=== PATIENT | female | born 1960 | race Caucasian/White ===

== ENCOUNTER 2016-06-23 19:17 | Inpatient (IN) | payer OTHER ==
[~2016-06-23] VITALS: Ht 162.6 cm; Wt 119.0 kg
[~2016-06-23 19:17] MED LIST: ADDERALL; ADDERALL30 MG PO; ALBUTEROL S5 MG/1 ML AEROSOL; ALBUTEROL SULF8.5 GM IH; ALDACTONE25 MG PO; ALPRAZOLAM0.5 MG PO; ALPRAZOLAM1 MG PO; AMARYL1 MG PO; AMBIEN; AMBIEN10 M1 PO; AMBIEN10 MG PO; AMOXIL500 MG PO; ANTIVERT25 MG PO; ASPIR-LOW81 MG PO; ASPIRIN325 MG PO; Ambien PO; BACTRIM,SEPT1 TABLET PO; CATAPRES0.1 MG PO; CEFDINIR300 MG PO; CHLORASEPTIC S180 ML MM; CLINDAMYCIN HC300 MG PO; COLACE10 MG/ML PO; CYCLOBENZAPRINE10 MG PO; CYMBALTA20 MG PO; CYMBALTA30 MG PO; CYMBALTA60 MG PO; Cipro 0.2% Otic Solu LEFT EAR; Colace PO; Cymbalta PO; DIAZEPAM2 MG; DOES NOT KNOW MEDS; DOXYCYCLINE HY100 MG PO; DULOXETINE HCL60 MG PO; DuoNeb IH; FLEXERIL10 MG PO; FLORASTOR250 MG PO; FUROSEMIDE40 MG PO; GABAPENTIN400 MG PO; GABAPENTIN800 MG PO; HALDOL5 MG PO; HYDROCHLOROTH12.5 M3 PO; HYDROCHLOROTHIA25 MG PO; HYDROCHLOROTHIA50 MG PO; HYDROCODON-ACE1 EAC7 PO; Haldol PO; IBUPROFEN800 MG PO; KEFLEX500 MG PO; KLONOPIN0.5 M1 PO; KLONOPIN1 MG PO; LEVAQUIN500 MG PO; LIDODERM 5% P1 PATCH TD; LOPRESSOR25 MG PO; LYRICA150 MG PO; LYRICA75 MG PO; Levaquin PO; MOTRIN600 MG PO; MOTRIN800 MG PO; Miralax, Glycolax PO; Motrin PO; NEURONTIN100 MG PO; NEURONTIN400 M1 PO; NEURONTIN400 MG PO; NEURONTIN600 MG PO; NEURONTIN800 MG PO; NICOTINE PATCH1 EAC1 TD; NICOTINE PATCH1 EAC2 TD; NOHOMEMEDS; NORCO 10/3251 TABLET PO; NORCO 5/3251 TABLET PO; NYSTATIN15 GM TP; Neurontin PO; OXYCODONE-APAP1 EACH PO; PANTOPRAZOLE SO40 MG PO; PERCOCET 5/31 TABLET PO; PREDNISONE20 M1 PO; PREDNISONE20 MG PO; PRILOSEC40 MG PO; PROAIR HFA8.5 GM IH; QUETIAPINE FUM200 MG PO; RISPERDAL1 MG PO; SEROQUEL200 MG PO; SEROQUEL300 MG PO; SEROQUEL400 MG PO; SERTRALINE HCL50 MG PO; SPIRONOLACTONE25 MG PO; SYNTHROID50 MCG PO; Senokot,Sennagen PO; TOPAMAX50 MG PO; TOPIRAMATE50 MG PO; TYLENOL REGULA325 MG PO; TYLENOL WITH C1 EACH PO; ULTRAM50 MG PO; UNITHROID50 MCG PO; VALIUM10 MG PO; VENTOLIN HFA18 GM IH; VICODIN HP 10-1 EACH PO; XANAX; XANAX0.25 MG PO; XANAX0.5 MG PO; XANAX1 MG PO; Xanax PO; ZITHROMAX Z-PA250 MG PO; ZOCOR40 MG PO; ZOLPIDEM TARTRAT5 MG PO; [UNRECOGNIZED DRUG - OTHER]; predniSONE PO
[2016-06-23 20:20] LABS: EOSINOPHIL (%) 3.5 % (0-5); EOSINOPHIL COUNT 0.2 K/uL (0-0.3); HEMATOCRIT 37.9 % (36.0-46.0); LYMPHOCYTE COUNT 1.7 K/uL (1.0-2.8); MCH 29.8 PG (29.0-34.0); MCHC 33.8 G/DL (30.0-36.0); MCV 88.3 FL (83-99); MEAN PLAT.VOLUME 9.3 uM^3 (9.5-12.4); MONOCYTE (%) 11.7 % (3-12); MONOCYTE COUNT 0.6 K/uL (0-0.8); NEUTROPHIL (%) 49.8 % (45-76); NEUTROPHIL COUNT 2.4 K/uL (1.8-6.4); PLATELET COUNT 199 K/uL (156-360); RBC DIS.WIDTH-CV 14.2 % (11.8-14.6); RBC DIS.WIDTH-SD 44.9 % (39-53); RED BLOOD COUNT 4.29 M/uL (3.80-5.20); WHITE BLOOD COUNT 4.9 K/uL (4.1-10.2)
[2016-06-23 20:31] LABS: CHLORIDE 102 mEq/L (99-109); POTASSIUM 3.7 mEq/L (3.7-5.4); SODIUM 139 mEq/L (136-147)
[2016-06-23 20:33] LABS: GLUCOSE 234 mg/dL (70-99)
[2016-06-23 20:34] LABS: ANION GAP 10 MEQ/L (2-14)
[2016-06-23 20:35] LABS: TOTAL BILIRUBIN 0.4 mg/dL (0.0-1.0)
[2016-06-23 20:36] LABS: ALKALINE PHOSPHATASE 133 IU/L (3-129)
[2016-06-23 20:37] LABS: GFR ESTIMATE (CALCULATED) > 59 mL/min/
[2016-06-23 20:38] LABS: UREA NITROGEN (BUN) 7 mg/dL (9-23)
[2016-06-23] MEDS ORDERED: ALDACTONE25 MG PO (23:07)
[2016-06-23] MEDS ORDERED: LYRICA300 MG PO (23:08)
[2016-06-23] MEDS ORDERED: NEURONTIN300 MG PO (23:08)
[2016-06-23] MEDS ORDERED: ATARAX,VISTARIL25 MG PO (23:12)
[2016-06-24] VITALS (8 sets, daily range): BP systolic 88–145; BP diastolic 46–80
[2016-06-24 10:30] LABS: BICARBONATE 30.4 mEq/L (22-26); CARBOXY HGB 3.7 % (0-5); COMMENTS - BLOOD GASES NAC+; DEVICE NC; METHEMOGLOBIN 1.1 % (0-1.5); O2 FLOW 3 L/MIN; PCO2 59 mm Hg (35-45); PO2 65 mm Hg (80-100); SITE RR; pH 7.32 (7.35-7.45)
[2016-06-24 10:31] LABS: TOTAL RESP RATE 16 resp/min
[2016-06-24 18:16] LABS: ADD MIUA? YES; BILIRUBIN NEGATIVE; BLOOD NEGATIVE; COLOR COLORLESS ((YELLOW)); GLUCOSE (STRIP) NEGATIVE; KETONES NEGATIVE; LEUKOCYTES SMALL; NITRITE NEGATIVE; PROTEIN (STRIP) NEGATIVE; SPECIFIC GRAVITY 1.002 (1.000-1.030); UROBILINOGEN 0.2 MG/DL (0.2-1.0)
[2016-06-24 20:08] LABS: EPITHELIAL CELLS RARE; RED BLOOD CELLS NONE SEEN /HPF (0-5); WHITE BLOOD CELLS 0-5 /HPF (0-5)
[2016-06-24 20:09] LABS: BACTERIA 1+; CASTS NONE SEEN /LPF; CRYSTALS NONE SEEN; MUCUS NONE SEEN
[2016-06-25 06:02] LABS: EOSINOPHIL (%) 3.2 % (0-5); EOSINOPHIL COUNT 0.1 K/uL (0-0.3); LYMPHOCYTE COUNT 1.8 K/uL (1.0-2.8); MCHC 32.1 G/DL (30.0-36.0); MCV 90.5 FL (83-99); MEAN PLAT.VOLUME 9.9 uM^3 (9.5-12.4); MONOCYTE (%) 12.3 % (3-12); MONOCYTE COUNT 0.5 K/uL (0-0.8); NEUTROPHIL (%) 35.3 % (45-76); NEUTROPHIL COUNT 1.3 K/uL (1.8-6.4); PLATELET COUNT 190 K/uL (156-360); RBC DIS.WIDTH-CV 14.2 % (11.8-14.6); RED BLOOD COUNT 4.31 M/uL (3.80-5.20); WHITE BLOOD COUNT 3.7 K/uL (4.1-10.2)
[2016-06-25 06:25] LABS: ALKALINE PHOSPHATASE 120 IU/L (3-129); ANION GAP 6 MEQ/L (2-14); CHLORIDE 98 MEQ/L (99-109); GFR ESTIMATE (CALCULATED) 50 mL/min/; GLUCOSE 170 mg/dL (70-99); POTASSIUM 3.9 MEQ/L (3.7-5.4); SAMPLE HEMOLYSIS CHECK 1; SAMPLE ICTERIC CHECK 0; SAMPLE LIPEMIA CHECK 0; SODIUM 138 MEQ/L (136-147); TOTAL BILIRUBIN 0.5 MG/DL (0.0-1.0); UREA NITROGEN (BUN) 11 mg/dL (9-23)
[2016-06-25 07:55] VITALS: BP 90/75
[2016-06-25 15:20] VITALS: BP 124/87
[2016-06-25 23:41] VITALS: BP 129/73
[2016-06-26 09:29] VITALS: BP 121/63
[2016-06-26] MEDS ORDERED: FLORASTOR250 MG PO (11:47)
[2016-06-26] MEDS ORDERED: CLEOCIN300 MG PO (11:47)
[2016-06-26] MEDS ORDERED: ZEASORB-AF70 G1 TP (11:48)
[2016-06-26] MEDS ORDERED: QUETIAPINE FUM400 MG PO (13:19)
[2016-06-26] MEDS ORDERED: ZOLPIDEM TARTRAT5 MG PO (13:19)
[2016-06-26] MEDS ORDERED: DULOXETINE HCL60 MG PO (13:19)
[2016-06-26] MEDS ORDERED: GABAPENTIN300 MG PO (13:19)
[2016-06-26] MEDS ORDERED: ALPRAZOLAM0.5 MG PO (13:19)
[2016-06-26] MEDS ORDERED: HYDROXYZINE PAM25 MG PO (13:19)
== END 2016-06-26 14:33 | disposition home or self-care (01) | DRG 603 ==
LOC: EME 19:17 → 5EAST 23:04 → EDOF 23:04 → 5EAST 23:57
PROVIDERS: Emergency Medicine; Internal Medicine
DX: L03.116 Cellulitis of left lower limb (principal); Z68.42 Body mass index [BMI] 45.0-49.9, adult; L03.115 Cellulitis of right lower limb; M79.7 Fibromyalgia; F17.200 Nicotine dependence, unspecified, uncomplicated; M79.605 Pain in left leg; E11.9 Type 2 diabetes mellitus without complications; M79.604 Pain in right leg; E66.01 Morbid (severe) obesity due to excess calories; I10 Essential (primary) hypertension; G89.29 Other chronic pain; E78.5 Hyperlipidemia, unspecified; E03.9 Hypothyroidism, unspecified; F32.9 Major depressive disorder, single episode, unspecified; F41.9 Anxiety disorder, unspecified; Z88.8 Allergy status to other drugs, medicaments and biological substances; Z88.1 Allergy status to other antibiotic agents; Z86.73 Personal history of transient ischemic attack (TIA), and cerebral infarction without residual deficits
CPT/HCPCS: 36600; 71010; 80053; 81003; 82803; 83605; 85025; 87040; 93970; 94799; 99281; 99285; J1170; J1650; J3010; J7040; Q0177

== ENCOUNTER 2016-07-15 12:28 | Emergency (ER) | payer OTHER ==
[~2016-07-15] VITALS: Ht 162.6 cm; Wt 114.0 kg
[~2016-07-15 12:28] MED LIST changes: +ATARAX,VISTARIL25 MG PO; +CLEOCIN300 MG PO; +GABAPENTIN300 MG PO; +HYDROXYZINE PAM25 MG PO; +LYRICA300 MG PO; +NEURONTIN300 MG PO; +QUETIAPINE FUM400 MG PO; +ZEASORB-AF70 G1 TP
[2016-07-15 13:13] LABS: EOSINOPHIL (%) 1.1 % (0-5); EOSINOPHIL COUNT 0.1 K/uL (0-0.3); HEMATOCRIT 41.9 % (36.0-46.0); IMMATURE GRANULOCYTE (%) 0.2 % (0.0-0.7); IMMATURE GRANULOCYTE COUNT 0.2 K/uL; LYMPHOCYTE COUNT 1.9 K/uL (1.0-2.8); MCHC 33.9 G/DL (30.0-36.0); MCV 85.7 FL (83-99); MEAN PLAT.VOLUME 9.6 uM^3 (9.5-12.4); MONOCYTE (%) 8.5 % (3-12); MONOCYTE COUNT 0.7 K/uL (0-0.8); NEUTROPHIL (%) 67.5 % (45-76); NEUTROPHIL COUNT 5.5 K/uL (1.8-6.4); PLATELET COUNT 210 K/uL (156-360); RBC DIS.WIDTH-CV 13.7 % (11.8-14.6); RBC DIS.WIDTH-SD 42.5 % (39-53); RED BLOOD COUNT 4.89 M/uL (3.80-5.20); WHITE BLOOD COUNT 8.2 K/uL (4.1-10.2)
[2016-07-15 13:21] LABS: CHLORIDE 104 mEq/L (99-109); POTASSIUM 3.4 mEq/L (3.7-5.4); SODIUM 141 mEq/L (136-147)
[2016-07-15 13:22] LABS: GLUCOSE 287 mg/dL (70-99)
[2016-07-15 13:24] LABS: ANION GAP 12 MEQ/L (2-14)
[2016-07-15 13:25] LABS: SERUM ETHYL ALCOHOL < 10 mg/dL
[2016-07-15 13:26] LABS: GFR ESTIMATE (CALCULATED) 50 mL/min/
[2016-07-15 13:27] LABS: UREA NITROGEN (BUN) 11 mg/dL (9-23)
[2016-07-15 13:55] VITALS: BP 142/78
== END 2016-07-15 13:57 | disposition home or self-care (01) ==
LOC: EME 12:28
PROVIDERS: Emergency Medicine
DX: F43.0 Acute stress reaction (principal); F41.9 Anxiety disorder, unspecified
CPT/HCPCS: 80048; 81003; 85025; 90837; 99281; 99284; G0480

== ENCOUNTER 2016-08-12 13:04 | Emergency (ER) | payer OTHER ==
[~2016-08-12] VITALS: Ht 162.6 cm; Wt 114.5 kg
[2016-08-12] MEDS ORDERED: ALPRAZOLAM1 MG PO (13:30)
[2016-08-12 13:50] LABS: EOSINOPHIL (%) 0.6 % (0-5); EOSINOPHIL COUNT 0.1 K/uL (0-0.3); HEMATOCRIT 46.3 % (36.0-46.0); IMMATURE GRANULOCYTE (%) 0.3 % (0.0-0.7); INSTRUMENT ABS NEUTROPHIL CT 5.1 K/uL; LYMPHOCYTE COUNT 1.8 K/uL (1.0-2.8); MCH 28.6 PG (29.0-34.0); MCHC 33.5 G/DL (30.0-36.0); MCV 85.4 FL (83-99); MEAN PLAT.VOLUME 9.9 uM^3 (9.5-12.4); MONOCYTE (%) 9.2 % (3-12); MONOCYTE COUNT 0.7 K/uL (0-0.8); NEUTROPHIL (%) 66.6 % (45-76); NEUTROPHIL COUNT 5.1 K/uL (1.8-6.4); PLATELET COUNT 172 K/uL (156-360); RBC DIS.WIDTH-SD 40.3 % (39-53); RED BLOOD COUNT 5.42 M/uL (3.80-5.20); WHITE BLOOD COUNT 7.7 K/uL (4.1-10.2)
[2016-08-12 14:01] LABS: CHLORIDE 92 mEq/L (99-109); POTASSIUM 3.9 mEq/L (3.7-5.4); SODIUM 133 mEq/L (136-147)
[2016-08-12 14:02] LABS: GLUCOSE 385 mg/dL (70-99)
[2016-08-12 14:04] LABS: ANION GAP 13 MEQ/L (2-14)
[2016-08-12 14:06] LABS: GFR ESTIMATE (CALCULATED) 50 mL/min/
[2016-08-12 14:07] LABS: UREA NITROGEN (BUN) 7 mg/dL (9-23)
[2016-08-12 14:16] LABS: TROP-I INTERPRETATION NEGATIVE; TROPONIN-I < 0.01 ng/mL (0.0-0.30)
[2016-08-12] MEDS ORDERED: PREDNISONE50 MG PO (15:33)
[2016-08-12] MEDS ORDERED: XANAX0.5 MG PO (15:33)
[2016-08-12 15:58] VITALS: BP 113/95
== END 2016-08-12 16:21 | disposition home or self-care (01) ==
LOC: EME 13:04
PROVIDERS: Emergency Medicine
DX: J44.9 Chronic obstructive pulmonary disease, unspecified (principal); F41.9 Anxiety disorder, unspecified; J45.909 Unspecified asthma, uncomplicated; G89.29 Other chronic pain; M79.7 Fibromyalgia; I10 Essential (primary) hypertension; K21.9 Gastro-esophageal reflux disease without esophagitis; Z86.73 Personal history of transient ischemic attack (TIA), and cerebral infarction without residual deficits; Z87.891 Personal history of nicotine dependence
CPT/HCPCS: 71010; 80048; 83880; 84484; 85025; 93005; 94640; 99281; 99285; J7644

== ENCOUNTER 2016-09-07 08:09 | Emergency (ER) | payer OTHER ==
[~2016-09-07] VITALS: Ht 162.6 cm; Wt 113.7 kg
[~2016-09-07 08:09] MED LIST changes: +PREDNISONE50 MG PO
[2016-09-07 10:49] VITALS: BP 99/72
== END 2016-09-07 10:52 | disposition left against medical advice (07) ==
LOC: EME 08:09
DX: R51 Headache (principal); J45.909 Unspecified asthma, uncomplicated; J44.9 Chronic obstructive pulmonary disease, unspecified; G89.29 Other chronic pain; M79.7 Fibromyalgia; I10 Essential (primary) hypertension; K21.9 Gastro-esophageal reflux disease without esophagitis; Z86.73 Personal history of transient ischemic attack (TIA), and cerebral infarction without residual deficits; Z72.0 Tobacco use
CPT/HCPCS: 70450; 80048; 85025; 99281; 99285; J1885; J2765; J7030

== ENCOUNTER 2016-11-23 14:55 | Emergency (ER) | payer OTHER ==
[~2016-11-23] VITALS: Ht 160 cm; Wt 114.6 kg
[2016-11-23 18:02] VITALS: BP 122/77
== END 2016-11-23 18:04 | disposition home or self-care (01) ==
LOC: EME 14:55
PROC: 2W3TX1Z Immobilization of Left Foot using Splint (ICD-10-PCS; principal; 2016-11-23)
DX: S09.90XA Unspecified injury of head, initial encounter (principal); S80.01XA Contusion of right knee, initial encounter; S93.402A Sprain of unspecified ligament of left ankle, initial encounter; W18.30XA Fall on same level, unspecified, initial encounter; J44.9 Chronic obstructive pulmonary disease, unspecified; I10 Essential (primary) hypertension; M79.7 Fibromyalgia; K21.9 Gastro-esophageal reflux disease without esophagitis; Z86.73 Personal history of transient ischemic attack (TIA), and cerebral infarction without residual deficits; Z79.891 Long term (current) use of opiate analgesic; F32.9 Major depressive disorder, single episode, unspecified; F17.200 Nicotine dependence, unspecified, uncomplicated; Z88.0 Allergy status to penicillin; Z88.8 Allergy status to other drugs, medicaments and biological substances
CPT/HCPCS: 70450; 72125; 73564; 73610; 99281; 99284; J3010

== ENCOUNTER 2016-12-22 12:33 | Inpatient (IN) | payer OTHER ==
[~2016-12-22] VITALS: Ht 177.8 cm; Wt 106.0 kg
[~2016-12-22 12:33] MED LIST changes: +OMEPRAZOLE40 M1 PO; -PRILOSEC40 MG PO
[2016-12-22 13:36] LABS: EOSINOPHIL (%) 0 % (0-5); HEMATOCRIT 45.8 % (36.0-46.0); IMMATURE GRANULOCYTE (%) 0.5 % (0.0-0.7); IMMATURE GRANULOCYTE COUNT 0.1 K/uL; INSTRUMENT ABS NEUTROPHIL CT 10.1 K/uL; LYMPHOCYTE COUNT 1.2 K/uL (1.0-2.8); MCH 28.9 PG (29.0-34.0); MCHC 33.6 G/DL (30.0-36.0); MCV 85.9 FL (83-99); MEAN PLAT.VOLUME 9.9 uM^3 (9.5-12.4); MONOCYTE (%) 7.6 % (3-12); MONOCYTE COUNT 0.9 K/uL (0-0.8); NEUTROPHIL (%) 82.1 % (45-76); NEUTROPHIL COUNT 10.1 K/uL (1.8-6.4); PLATELET COUNT 189 K/uL (156-360); RBC DIS.WIDTH-CV 13.9 % (11.8-14.6); RBC DIS.WIDTH-SD 43.2 % (39-53); RED BLOOD COUNT 5.33 M/uL (3.80-5.20); WHITE BLOOD COUNT 12.2 K/uL (4.1-10.2)
[2016-12-22 13:50] LABS: CHLORIDE 96 mEq/L (99-109); POTASSIUM 3.4 mEq/L (3.7-5.4); SODIUM 142 mEq/L (136-147)
[2016-12-22 13:52] LABS: GLUCOSE 192 mg/dL (70-99)
[2016-12-22 13:53] LABS: ANION GAP 17 MEQ/L (2-14)
[2016-12-22 13:54] LABS: TOTAL BILIRUBIN 0.9 mg/dL (0.0-1.0)
[2016-12-22 13:55] LABS: SERUM ETHYL ALCOHOL < 10 mg/dL
[2016-12-22 13:56] LABS: ALKALINE PHOSPHATASE 126 IU/L (3-129); GFR ESTIMATE (CALCULATED) 50 mL/min/
[2016-12-22 13:57] LABS: UREA NITROGEN (BUN) 15 mg/dL (9-23)
[2016-12-22 14:05] LABS: QUANTITATIVE HCG < 4.0 MIU/ML
[2016-12-22] MEDS ORDERED: FOLIC ACID1 MG PO (18:52)
[2016-12-22] MEDS ORDERED: ATARAX,VISTARIL25 MG PO (18:52)
[2016-12-22] MEDS ORDERED: CYMBALTA60 MG PO (18:54)
[2016-12-22] MEDS ORDERED: SEROQUEL400 MG PO (18:55)
[2016-12-22] MEDS ORDERED: GLIMEPIRIDE4 MG PO (18:56)
[2016-12-22 19:33] VITALS: BP 164/90
[2016-12-22 22:48] LABS: METH RESISTANT S AUREUS PCR NEGATIVE (NEGATIVE)
[2016-12-22 23:13] LABS: PROBE CHECK PASS; SPECIMEN PROCESSING CONTROL PASS
[2016-12-23 00:45] VITALS: BP 160/68
[2016-12-23 04:15] VITALS: BP 165/83
[2016-12-23 05:07] LABS: AMPHETAMINES QUANT VALUE 0 NG/ML; BARBITUATES QUANT VALUE 0 NG/ML; BENZODIAZEPINES, URINE SCREEN POSITIVE (200 ng/mL); MARIJUANA QUANT VALUE 0 NG/ML; PHENCYCLIDINE QUANT VALUE 0 NG/ML
[2016-12-23 07:41] LABS: HDL CHOLESTEROL 48 MG/DL (Desirable>=50); LDL CHOLESTEROL 103 mg/dL (Desirable<100); NON-HDL CHOLESTEROL 138 mg/dL (Desirable<160); TOTAL CHOLESTEROL 186 mg/dL (Desirable<200); TRIGLYCERIDES 177 MG/DL (Normal: <150)
[2016-12-23 07:55] LABS: Estimated Average Glucose 203 mg/dL (70-123); HEMOGLOBIN A1c (GLYCOHEMOGLOB) 8.7 % HGB (Below 5.7)
[2016-12-23 08:00] VITALS: BP 160/79
[2016-12-23 08:46] LABS: HEMATOCRIT 45.1 % (36.0-46.0); MCH 29.4 PG (29.0-34.0); MEAN PLAT.VOLUME 10.1 uM^3 (9.5-12.4); PLATELET COUNT 224 K/uL (156-360); RBC DIS.WIDTH-CV 13.9 % (11.8-14.6); RBC DIS.WIDTH-SD 42.5 % (39-53); RED BLOOD COUNT 5.37 M/uL (3.80-5.20); WHITE BLOOD COUNT 12.5 K/uL (4.1-10.2)
[2016-12-23 09:15] LABS: ANION GAP 15 MEQ/L (2-14); CHLORIDE 99 MEQ/L (99-109); GFR ESTIMATE (CALCULATED) > 59 mL/min/; GLUCOSE 145 mg/dL (70-99); POTASSIUM 3.1 MEQ/L (3.7-5.4); SAMPLE HEMOLYSIS CHECK 0; SAMPLE ICTERIC CHECK 0; SAMPLE LIPEMIA CHECK 0; SODIUM 141 MEQ/L (136-147); UREA NITROGEN (BUN) 15 mg/dL (9-23)
[2016-12-23 11:30] VITALS: BP 151/77
[2016-12-23 14:48] VITALS: BP 159/88
[2016-12-23 18:04] LABS: POINT-OF-CARE METER ID UU13113717
[2016-12-23 21:27] LABS: POINT-OF-CARE METER ID UU14174225
[2016-12-24] VITALS: BP 152/85
[2016-12-24 08:30] VITALS: BP 111/69
[2016-12-24 12:42] LABS: POINT-OF-CARE METER ID UU13113717
[2016-12-24 13:21] VITALS: BP 127/78
[2016-12-24 15:21] VITALS: BP 127/85
[2016-12-24] MEDS ORDERED: LYRICA100 MG PO (20:04)
[2016-12-24] MEDS ORDERED: AMBIEN10 MG PO (20:04)
== END 2016-12-24 18:44 | DRG 948 ==
LOC: EME 12:33 → EDOF 17:32 → ENRESERV 17:34 → 5WEST 19:15 → 5SOUTH 12-23 12:32 → 5WEST 12-23 12:32 → CANRESERV 12-23 12:38 → ENRESERV 12-23 12:38 → 5SOUTH 12-23 14:16
PROVIDERS: Emergency Medicine; Nurse Practitioner Adult Health; Physician Assistant Medical; Student in an Organized Health Care Education/Training Program
DX: R41.82 Altered mental status, unspecified (principal); R47.01 Aphasia; F25.9 Schizoaffective disorder, unspecified; F31.9 Bipolar disorder, unspecified; F41.9 Anxiety disorder, unspecified; F17.200 Nicotine dependence, unspecified, uncomplicated; J44.9 Chronic obstructive pulmonary disease, unspecified; I10 Essential (primary) hypertension; K21.9 Gastro-esophageal reflux disease without esophagitis; G43.909 Migraine, unspecified, not intractable, without status migrainosus; M79.7 Fibromyalgia; E66.9 Obesity, unspecified; G89.29 Other chronic pain; M54.9 Dorsalgia, unspecified; Z86.73 Personal history of transient ischemic attack (TIA), and cerebral infarction without residual deficits; Z91.14 Patient's other noncompliance with medication regimen; Z68.33 Body mass index [BMI] 33.0-33.9, adult; Z79.891 Long term (current) use of opiate analgesic; Z88.0 Allergy status to penicillin
CPT/HCPCS: 70450; 70551; 80048; 80053; 80061; 80306 90; 81003; 82948; 83036; 84702; 85025; 85027; 87081; 87641; 90839; 90899; 93880; 99281; 99285; G0378; G0480; J1815; J2060; Q0177

== ENCOUNTER 2016-12-24 18:04 | Inpatient (IN) | payer OTHER ==
[~2016-12-24] VITALS: Ht 177.8 cm; Wt 106.0 kg
[~2016-12-24 18:04] MED LIST changes: +FOLIC ACID1 MG PO; +GLIMEPIRIDE4 MG PO
[2016-12-24 18:58] VITALS: BP 117/73
[2016-12-24 19:03] VITALS: BP 117/73
[2016-12-24] MEDS ORDERED: LYRICA100 MG PO (20:04)
[2016-12-24] MEDS ORDERED: AMBIEN10 MG PO (20:04)
[2016-12-25 07:35] VITALS: BP 109/59
[2016-12-25 15:14] VITALS: BP 132/67
[2016-12-26 07:44] VITALS: BP 120/66
[2016-12-26 15:27] VITALS: BP 137/100
[2016-12-27 07:40] VITALS: BP 134/65
[2016-12-27] MEDS ORDERED: ZOLPIDEM TARTRAT5 MG PO (09:42)
== END 2016-12-27 11:54 | disposition home or self-care (01) | DRG 885 ==
LOC: 1WEST 18:04 → ENRESERV 18:04 → 1WEST 18:49
DX: F25.9 Schizoaffective disorder, unspecified (principal); F11.10 Opioid abuse, uncomplicated; F13.10 Sedative, hypnotic or anxiolytic abuse, uncomplicated; J44.9 Chronic obstructive pulmonary disease, unspecified; E11.9 Type 2 diabetes mellitus without complications; E66.01 Morbid (severe) obesity due to excess calories; Z68.33 Body mass index [BMI] 33.0-33.9, adult; Z91.14 Patient's other noncompliance with medication regimen; Z88.0 Allergy status to penicillin
CPT/HCPCS: Q0177

== ENCOUNTER 2017-04-21 19:45 | Emergency (ER) | payer OTHER ==
[~2017-04-21] VITALS: Ht 160 cm; Wt 84.7 kg
[~2017-04-21 19:45] MED LIST changes: +LYRICA100 MG PO
[2017-04-21 20:17] LABS: GLUCOSE 358 mg/dL (70-99)
[2017-04-21 20:40] LABS: CHLORIDE 91 mEq/L (99-109); POTASSIUM 3.3 mEq/L (3.7-5.4); SODIUM 135 mEq/L (136-147)
[2017-04-21 20:43] LABS: GLUCOSE 360 mg/dL (70-99)
[2017-04-21 20:44] LABS: ANION GAP 13 MEQ/L (2-14)
[2017-04-21 20:45] LABS: TOTAL BILIRUBIN 0.4 mg/dL (0.0-1.0)
[2017-04-21 20:46] LABS: ALKALINE PHOSPHATASE 127 IU/L (3-129); GFR ESTIMATE (CALCULATED) 49 mL/min/
[2017-04-21 20:47] LABS: UREA NITROGEN (BUN) 10 mg/dL (9-23)
[2017-04-21 20:58] LABS: TROP-I INTERPRETATION NEGATIVE; TROPONIN-I < 0.01 ng/mL (0.0-0.30)
[2017-04-21 21:03] LABS: EOSINOPHIL (%) 0.7 % (0-5); EOSINOPHIL COUNT 0.1 K/uL (0-0.3); HEMATOCRIT 41.1 % (36.0-46.0); IMMATURE GRANULOCYTE (%) 0.6 % (0.0-0.7); MCH 29.5 PG (29.0-34.0); MCHC 34.3 G/DL (30.0-36.0); MEAN PLAT.VOLUME 10.2 uM^3 (9.5-12.4); MONOCYTE (%) 8.4 % (3-12); MONOCYTE COUNT 0.6 K/uL (0-0.8); NEUTROPHIL (%) 59.9 % (45-76); PLATELET COUNT 166 K/uL (156-360); RBC DIS.WIDTH-CV 12.7 % (11.8-14.6); RBC DIS.WIDTH-SD 39.8 % (39-53); RED BLOOD COUNT 4.78 M/uL (3.80-5.20); WHITE BLOOD COUNT 6.7 K/uL (4.1-10.2)
[2017-04-21 23:23] LABS: ADD MIUA? NO; BILIRUBIN NEGATIVE; BLOOD NEGATIVE; COLOR YELLOW ((YELLOW)); GLUCOSE (STRIP) >=500; KETONES NEGATIVE; LEUKOCYTES NEGATIVE; NITRITE NEGATIVE; PROTEIN (STRIP) NEGATIVE; SPECIFIC GRAVITY 1.008 (1.000-1.030); UCUL ADDED? NO; UROBILINOGEN 0.2 MG/DL (0.2-1.0)
[2017-04-22 01:06] LABS: POINT-OF-CARE METER ID UU13113702
[2017-04-22 01:14] VITALS: BP 112/78
== END 2017-04-22 01:15 | disposition home or self-care (01) ==
LOC: EME → EDBD 19:45 → EME 04-22 01:15
PROVIDERS: Emergency Medicine
DX: E11.65 Type 2 diabetes mellitus with hyperglycemia (principal); E86.0 Dehydration; R29.6 Repeated falls; F25.9 Schizoaffective disorder, unspecified; I10 Essential (primary) hypertension; F32.9 Major depressive disorder, single episode, unspecified; F41.9 Anxiety disorder, unspecified; Z88.0 Allergy status to penicillin; Z88.8 Allergy status to other drugs, medicaments and biological substances; Z72.0 Tobacco use
CPT/HCPCS: 80053; 81003; 82948; 84484; 84999; 85025; 93005; 99281; 99285; J7030

== ENCOUNTER 2017-06-23 02:51 | Inpatient (IN) | payer OTHER ==
[~2017-06-23] VITALS: Ht 162.6 cm; Wt 105.6 kg
[2017-06-23 07:16] LABS: BASOPHIL (%) 0.1 % (0-1); EOSINOPHIL (%) 0.1 % (0-5); HEMATOCRIT 43.7 % (36.0-46.0); HEMOGLOBIN 15.7 G/DL (11.9-15.5); IMMATURE GRANULOCYTE (%) 0.3 % (0.0-0.7); LYMPHOCYTE COUNT 1.6 K/uL (1.0-2.8); MCH 29.6 PG (29.0-34.0); MCHC 35.9 G/DL (30.0-36.0); MCV 82.5 FL (83-99); MONOCYTE COUNT 0.6 K/uL (0-0.8); NEUTROPHIL (%) 77.5 % (45-76); NEUTROPHIL COUNT 7.6 K/uL (1.8-6.4); PLATELET COUNT 172 K/uL (156-360); RBC DIS.WIDTH-CV 12.6 % (11.8-14.6); RBC DIS.WIDTH-SD 37.9 % (39-53); WHITE BLOOD COUNT 9.8 K/uL (4.1-10.2)
[2017-06-23 07:43] LABS: CHLORIDE 89 mEq/L (99-109); POTASSIUM 2.7 mEq/L (3.7-5.4); SODIUM 134 mEq/L (136-147)
[2017-06-23 07:48] LABS: CREATININE 1.2 mg/dL (0.6-1.3); GFR ESTIMATE (CALCULATED) 49 mL/min/; GLUCOSE 555 mg/dL (70-99)
[2017-06-23 07:49] LABS: UREA NITROGEN (BUN) 16 mg/dL (9-23)
[2017-06-23 10:04] LABS: TROP-I INTERPRETATION NEGATIVE; TROPONIN-I < 0.01 ng/mL (0.0-0.30)
[2017-06-23 10:50] VITALS: BP 127/90
[2017-06-23] MEDS ORDERED: LYRICA200 MG PO (14:33)
[2017-06-23] MEDS ORDERED: SEROQUEL400 MG PO ×2 (14:35→14:36)
[2017-06-23 14:36] LABS: CREATINE KINASE 89 IU/L (1-294)
[2017-06-23] MEDS ORDERED: AMBIEN10 MG PO (14:38)
[2017-06-23 14:40] LABS: MAGNESIUM 2.5 mg/dL (1.3-2.7)
[2017-06-23] MEDS ORDERED: ALPRAZOLAM1 MG PO (14:40)
[2017-06-23] MEDS ORDERED: XANAX1 MG PO (14:42)
[2017-06-23] MEDS ORDERED: ADVAIR 250/501 DISK IH (14:44)
[2017-06-23] MEDS ORDERED: LO-DOSE ASPIRIN81 M1 PO (15:21)
[2017-06-23] MEDS ORDERED: PERCOCET 10/1 TABLET PO (15:23)
[2017-06-23] MEDS ORDERED: ATARAX,VISTARIL25 MG PO (15:26)
[2017-06-23 15:31] LABS: CHLORIDE 93 mEq/L (99-109); SODIUM 134 mEq/L (136-147)
[2017-06-23 15:32] LABS: GLUCOSE 372 mg/dL (70-99)
[2017-06-23 15:36] LABS: CREATININE 1.2 mg/dL (0.6-1.3); GFR ESTIMATE (CALCULATED) 49 mL/min/
[2017-06-23 15:37] LABS: UREA NITROGEN (BUN) 15 mg/dL (9-23)
[2017-06-23 16:13] VITALS: BP 123/70
[2017-06-23 19:35] VITALS: BP 120/72
[2017-06-23 23:08] VITALS: BP 98/56
[2017-06-24 03:06] VITALS: BP 102/60
[2017-06-24 06:46] LABS: HEMATOCRIT 41.3 % (36.0-46.0); HEMOGLOBIN 14.4 G/DL (11.9-15.5); MCH 29.7 PG (29.0-34.0); MCHC 34.9 G/DL (30.0-36.0); MCV 85.2 FL (83-99); PLATELET COUNT 144 K/uL (156-360); RBC DIS.WIDTH-CV 13.1 % (11.8-14.6); RBC DIS.WIDTH-SD 40.4 % (39-53); RED BLOOD COUNT 4.85 M/uL (3.80-5.20); WHITE BLOOD COUNT 10.2 K/uL (4.1-10.2)
[2017-06-24 07:06] LABS: CHLORIDE 96 MEQ/L (99-109); GFR ESTIMATE (CALCULATED) > 59 mL/min/; GLUCOSE 335 mg/dL (70-99); SODIUM 137 MEQ/L (136-147); UREA NITROGEN (BUN) 15 mg/dL (9-23)
[2017-06-24 07:10] LABS: POTASSIUM 3.8 MEQ/L (3.7-5.4)
[2017-06-24 07:46] VITALS: BP 129/70
[2017-06-24 16:00] VITALS: BP 108/57
[2017-06-24 16:57] LABS: GLUCOSE 528 mg/dL (70-99)
[2017-06-24 18:49] LABS: CHLORIDE 94 MEQ/L (99-109); CREATININE 1.4 MG/DL (0.6-1.3); GFR ESTIMATE (CALCULATED) 41 mL/min/; POTASSIUM 3.4 MEQ/L (3.7-5.4); SODIUM 132 MEQ/L (136-147); UREA NITROGEN (BUN) 17 mg/dL (9-23)
[2017-06-24 18:50] LABS: GLUCOSE 588 mg/dL (70-99)
[2017-06-25 00:26] VITALS: BP 99/54
[2017-06-25 08:23] VITALS: BP 103/55
[2017-06-25 08:46] LABS: BASOPHIL (%) 0.2 % (0-1); EOSINOPHIL (%) 0.1 % (0-5); HEMATOCRIT 41.9 % (36.0-46.0); HEMOGLOBIN 14.1 G/DL (11.9-15.5); IMMATURE GRANULOCYTE (%) 0.4 % (0.0-0.7); LYMPHOCYTE (%) 34.3 % (15-42); LYMPHOCYTE COUNT 3.1 K/uL (1.0-2.8); MCH 28.9 PG (29.0-34.0); MCHC 33.7 G/DL (30.0-36.0); MCV 85.9 FL (83-99); MONOCYTE (%) 5.6 % (3-12); MONOCYTE COUNT 0.5 K/uL (0-0.8); NEUTROPHIL (%) 59.4 % (45-76); NEUTROPHIL COUNT 5.3 K/uL (1.8-6.4); PLATELET COUNT 143 K/uL (156-360); RBC DIS.WIDTH-CV 13.3 % (11.8-14.6); RBC DIS.WIDTH-SD 41.4 % (39-53); RED BLOOD COUNT 4.88 M/uL (3.80-5.20); WHITE BLOOD COUNT 8.9 K/uL (4.1-10.2)
[2017-06-25 09:18] LABS: CHLORIDE 99 MEQ/L (99-109); UREA NITROGEN (BUN) 12 mg/dL (9-23)
[2017-06-25 09:19] LABS: CREATININE 0.9 MG/DL (0.6-1.3); GFR ESTIMATE (CALCULATED) > 59 mL/min/; GLUCOSE 183 mg/dL (70-99); SODIUM 141 MEQ/L (136-147)
[2017-06-25 15:00] LABS: HEMOGLOBIN A1c (GLYCOHEMOGLOB) 14.4 % (Below 5.7)
[2017-06-25 16:11] VITALS: BP 123/71
[2017-06-25 23:59] VITALS: BP 120/56
[2017-06-26 07:00] VITALS: BP 105/60
[2017-06-26 07:25] LABS: CHLORIDE 101 MEQ/L (99-109); GFR ESTIMATE (CALCULATED) > 59 mL/min/; GLUCOSE 154 mg/dL (70-99); SODIUM 141 MEQ/L (136-147); UREA NITROGEN (BUN) 15 mg/dL (9-23)
[2017-06-26 07:29] LABS: POTASSIUM 3.8 MEQ/L (3.7-5.4)
[2017-06-26 15:40] VITALS: BP 111/57
[2017-06-27 00:34] VITALS: BP 133/72
[2017-06-27 06:05] LABS: HEMATOCRIT 41.7 % (36.0-46.0); HEMOGLOBIN 13.9 G/DL (11.9-15.5); MCHC 33.3 G/DL (30.0-36.0); MCV 86.9 FL (83-99); PLATELET COUNT 152 K/uL (156-360); RBC DIS.WIDTH-CV 13.5 % (11.8-14.6); RBC DIS.WIDTH-SD 43.7 % (39-53); WHITE BLOOD COUNT 7.6 K/uL (4.1-10.2)
[2017-06-27 06:51] LABS: CHLORIDE 103 MEQ/L (99-109); GFR ESTIMATE (CALCULATED) > 59 mL/min/; GLUCOSE 158 mg/dL (70-99); POTASSIUM 4.4 MEQ/L (3.7-5.4); SODIUM 140 MEQ/L (136-147); UREA NITROGEN (BUN) 16 mg/dL (9-23)
[2017-06-27 06:55] VITALS: BP 133/65
[2017-06-27] MEDS ORDERED: METFORMIN HCL1000 MG PO (10:03)
[2017-06-27] MEDS ORDERED: JANUVIA25 M1 PO (10:03)
[2017-06-27] MEDS ORDERED: GLIPIZIDE10 MG PO (10:03)
== END 2017-06-27 16:12 | disposition home or self-care (01) | DRG 638 ==
LOC: EME → EDBD 02:51 → EME 02:51 → EDOF 08:28 → 5EAST 08:28 → ENRESERV 08:32 → EDOF 08:43 → ENRESERV 09:24 → 5EAST 10:33
PROVIDERS: Emergency Medicine; Internal Medicine; Physician Assistant Medical
DX: E11.65 Type 2 diabetes mellitus with hyperglycemia (principal); J44.1 Chronic obstructive pulmonary disease with (acute) exacerbation; E11.649 Type 2 diabetes mellitus with hypoglycemia without coma; L89.312 Pressure ulcer of right buttock, stage 2; L89.320 Pressure ulcer of left buttock, unstageable; S00.83XA Contusion of other part of head, initial encounter; I10 Essential (primary) hypertension; J98.11 Atelectasis; E87.6 Hypokalemia; R91.1 Solitary pulmonary nodule; Y92.009 Unspecified place in unspecified non-institutional (private) residence as the place of occurrence of the external cause; W18.30XA Fall on same level, unspecified, initial encounter; F25.9 Schizoaffective disorder, unspecified; G89.29 Other chronic pain; F32.9 Major depressive disorder, single episode, unspecified; F17.210 Nicotine dependence, cigarettes, uncomplicated; K76.0 Fatty (change of) liver, not elsewhere classified; Z79.4 Long term (current) use of insulin; Z79.82 Long term (current) use of aspirin; Z79.899 Other long term (current) drug therapy; Z81.1 Family history of alcohol abuse and dependence; Z82.49 Family history of ischemic heart disease and other diseases of the circulatory system; Z91.14 Patient's other noncompliance with medication regimen
CPT/HCPCS: 70450; 71045; 71250; 72125; 80048; 80048 91; 81003; 82550; 82948; 83036; 83735; 84484; 84999; 85025; 85027; 93005; 94640; 94640 76; 94799; 95819; 99202; 99281; 99285; A6214; J1644; J1815; J3480; J7030; J7512

== ENCOUNTER 2017-08-13 14:45 | Emergency (ER) | payer OTHER ==
[~2017-08-13] VITALS: Ht 162.6 cm; Wt 105.8 kg
[~2017-08-13 14:45] MED LIST changes: +ADVAIR 250/501 DISK IH; +GLIPIZIDE10 MG PO; +JANUVIA25 M1 PO; +LO-DOSE ASPIRIN81 M1 PO; +LYRICA200 MG PO; +METFORMIN HCL1000 MG PO; +PERCOCET 10/1 TABLET PO
[2017-08-13 15:17] LABS: HEMATOCRIT 40.2 % (36.0-46.0); HEMOGLOBIN 14.4 G/DL (11.9-15.5); MCH 30.8 PG (29.0-34.0); MCHC 35.8 G/DL (30.0-36.0); MCV 86.1 FL (83-99); PLATELET COUNT 178 K/uL (156-360); RBC DIS.WIDTH-CV 13.2 % (11.8-14.6); RBC DIS.WIDTH-SD 40.2 % (39-53); RED BLOOD COUNT 4.67 M/uL (3.80-5.20); WHITE BLOOD COUNT 7.4 K/uL (4.1-10.2)
[2017-08-13 15:29] LABS: ALBUMIN 3.6 g/dL (3.2-4.8); CHLORIDE 91 mEq/L (99-109); POTASSIUM 3.9 mEq/L (3.7-5.4); SODIUM 134 mEq/L (136-147)
[2017-08-13 15:32] LABS: GLUCOSE 549 mg/dL (70-99); TOTAL PROTEIN 6.2 g/dL (6.4-8.3)
[2017-08-13 15:33] LABS: TOTAL BILIRUBIN 0.3 mg/dL (0.0-1.0)
[2017-08-13 15:35] LABS: ALKALINE PHOSPHATASE 118 IU/L (3-129); CREATININE 1.2 mg/dL (0.6-1.3); GFR ESTIMATE (CALCULATED) 49 mL/min/
[2017-08-13 15:36] LABS: UREA NITROGEN (BUN) 9 mg/dL (9-23)
[2017-08-13 15:37] LABS: AST (GOT) 17 IU/L (2-34)
[2017-08-13 15:38] LABS: ALT (GPT) 22 IU/L (3-49)
[2017-08-13 16:04] LABS: VENOUS PCO2 65 mm Hg (41-51)
[2017-08-13 16:05] LABS: CARBON DIOXIDE (BICARBONATE) > 40.0 MEQ/L (20-31)
[2017-08-13 19:05] LABS: APPEARANCE CLEAR ((CLEAR)); BILIRUBIN NEGATIVE; BLOOD NEGATIVE; COLOR YELLOW ((YELLOW)); GLUCOSE (STRIP) >=500; KETONES NEGATIVE; LEUKOCYTES NEGATIVE; NITRITE NEGATIVE; PROTEIN (STRIP) NEGATIVE; SPECIFIC GRAVITY 1.021 (1.000-1.030); UCUL ADDED? NO; UROBILINOGEN 0.2 MG/DL (0.2-1.0)
[2017-08-13 19:07] LABS: CHLORIDE 98 mEq/L (99-109); POTASSIUM 3.6 mEq/L (3.7-5.4); SODIUM 138 mEq/L (136-147)
[2017-08-13 19:12] LABS: CREATININE 0.9 mg/dL (0.6-1.3); GFR ESTIMATE (CALCULATED) > 59 mL/min/
[2017-08-13 19:13] LABS: UREA NITROGEN (BUN) 8 mg/dL (9-23)
[2017-08-13 19:15] LABS: GLUCOSE 263 mg/dL (70-99)
[2017-08-13] MEDS ORDERED: KEFLEX500 MG PO (23:26)
[2017-08-14 00:45] VITALS: BP 104/77
== END 2017-08-14 00:47 | disposition home or self-care (01) ==
LOC: EME 14:45
PROVIDERS: Physician Assistant
PROC: 0T9B70Z Drainage of Bladder with Drainage Device, Via Natural or Artificial Opening (ICD-10-PCS; principal; 2017-08-13)
DX: E11.65 Type 2 diabetes mellitus with hyperglycemia (principal); R33.9 Retention of urine, unspecified; J44.9 Chronic obstructive pulmonary disease, unspecified; Z79.4 Long term (current) use of insulin; I10 Essential (primary) hypertension; F17.200 Nicotine dependence, unspecified, uncomplicated; F32.9 Major depressive disorder, single episode, unspecified; F41.9 Anxiety disorder, unspecified; Z79.82 Long term (current) use of aspirin; Z88.1 Allergy status to other antibiotic agents; Z88.0 Allergy status to penicillin
CPT/HCPCS: 71046; 74176; 80048 91; 80053; 81003; 82010; 82803; 82948; 85027; 99281; 99285; J2765; J7030

== ENCOUNTER 2017-08-18 12:47 | Emergency (ER) | payer OTHER ==
[~2017-08-18] VITALS: Ht 162.6 cm; Wt 106.0 kg
[2017-08-18 14:37] VITALS: BP 111/73
== END 2017-08-18 14:37 | disposition home or self-care (01) ==
LOC: EME 12:47
DX: T83.84XA Pain due to genitourinary prosthetic devices, implants and grafts, initial encounter (principal); Y84.6 Urinary catheterization as the cause of abnormal reaction of the patient, or of later complication, without mention of misadventure at the time of the procedure; F41.9 Anxiety disorder, unspecified; I10 Essential (primary) hypertension; F32.9 Major depressive disorder, single episode, unspecified; Z79.82 Long term (current) use of aspirin; Z88.1 Allergy status to other antibiotic agents; Z88.0 Allergy status to penicillin; F17.200 Nicotine dependence, unspecified, uncomplicated
CPT/HCPCS: 99281; 99283

== ENCOUNTER 2017-10-18 15:41 | Inpatient (IN) | payer OTHER ==
[~2017-10-18] VITALS: Ht 162.6 cm; Wt 103.8 kg
[2017-10-18 17:57] LABS: APPEARANCE CLEAR ((CLEAR)); BILIRUBIN NEGATIVE; BLOOD SMALL; COLOR YELLOW ((YELLOW)); GLUCOSE (STRIP) >=500; KETONES NEGATIVE; LEUKOCYTES TRACE; NITRITE POSITIVE; PROTEIN (STRIP) NEGATIVE; SPECIFIC GRAVITY 1.023 (1.000-1.030); UROBILINOGEN 0.2 MG/DL (0.2-1.0)
[2017-10-18 18:01] LABS: BACTERIA NONE SEEN /HPF; EPITHELIAL CELLS RARE /HPF; MUCUS TRACE /LPF; RED BLOOD CELLS 0-5 /HPF (0-5); WHITE BLOOD CELLS 20-30 /HPF (0-5)
[2017-10-18 18:33] LABS: CARBON DIOXIDE (BICARBONATE) 38.2 MEQ/L (20-31); HEMATOCRIT 44.3 % (36.0-46.0); HEMOGLOBIN 15.6 G/DL (11.9-15.5); MCH 29.8 PG (29.0-34.0); MCHC 35.2 G/DL (30.0-36.0); MCV 84.7 FL (83-99); PLATELET COUNT 185 K/uL (156-360); RBC DIS.WIDTH-CV 12.9 % (11.8-14.6); RBC DIS.WIDTH-SD 39.6 % (39-53); RED BLOOD COUNT 5.23 M/uL (3.80-5.20)
[2017-10-18 18:44] LABS: ALBUMIN 3.5 g/dL (3.2-4.8); CHLORIDE 95 mEq/L (99-109); POTASSIUM 3.2 mEq/L (3.7-5.4); SODIUM 135 mEq/L (136-147)
[2017-10-18 18:45] LABS: MAGNESIUM 1.9 mg/dL (1.3-2.7)
[2017-10-18 18:46] LABS: GLUCOSE 365 mg/dL (70-99)
[2017-10-18 18:47] LABS: TOTAL PROTEIN 6.4 g/dL (6.4-8.3)
[2017-10-18 18:48] LABS: TOTAL BILIRUBIN 0.3 mg/dL (0.0-1.0)
[2017-10-18 18:50] LABS: ALKALINE PHOSPHATASE 130 IU/L (3-129); CREATININE 1.1 mg/dL (0.6-1.3); GFR ESTIMATE (CALCULATED) 55 mL/min/; PHOSPHORUS 3.4 mg/dL (2.5-4.9)
[2017-10-18 18:51] LABS: UREA NITROGEN (BUN) 13 mg/dL (9-23)
[2017-10-18 18:52] LABS: AST (GOT) 12 IU/L (2-34)
[2017-10-18 18:53] LABS: TROP-I INTERPRETATION NEGATIVE; TROPONIN-I < 0.01 ng/mL (0.0-0.30)
[2017-10-18 18:53] LABS: ALT (GPT) 17 IU/L (3-49); LIPASE 17 U/L (1.0-51.0)
[2017-10-18] MEDS ORDERED: CYMBALTA60 MG PO (20:06)
[2017-10-18] MEDS ORDERED: TOUJEO SOL300 UNIT/1 SC (20:06)
[2017-10-18] MEDS ORDERED: IBUPROFEN800 MG PO (20:06)
[2017-10-18] MEDS ORDERED: ZEASORB-AF70 G1 TP (20:06)
[2017-10-18] MEDS ORDERED: PROMETHAZINE HC25 M1 PO (20:07)
[2017-10-18] MEDS ORDERED: NYSTATIN100000 UN1 PO (20:07)
[2017-10-18 20:45] VITALS: BP 141/93
[2017-10-19 00:02] VITALS: BP 113/73
[2017-10-19 07:36] LABS: TROP-I INTERPRETATION NEGATIVE; TROPONIN-I < 0.01 ng/mL (0.0-0.30)
[2017-10-19 07:39] LABS: CHLORIDE 104 MEQ/L (99-109); CREATININE 0.8 MG/DL (0.6-1.3); GFR ESTIMATE (CALCULATED) > 59 mL/min/; GLUCOSE 222 mg/dL (70-99); SODIUM 140 MEQ/L (136-147); UREA NITROGEN (BUN) 11 mg/dL (9-23)
[2017-10-19 08:03] VITALS: BP 109/53
[2017-10-19 11:36] VITALS: BP 90/65
[2017-10-19] MEDS ORDERED: LEVAQUIN500 MG PO (12:45)
[2017-10-19 12:56] LABS: TROP-I INTERPRETATION NEGATIVE; TROPONIN-I < 0.01 ng/mL (0.0-0.30)
[2017-10-19 15:16] VITALS: BP 104/68
[2017-10-19 20:35] VITALS: BP 100/55
[2017-10-20 00:28] VITALS: BP 114/61
[2017-10-20 08:01] VITALS: BP 122/77
[2017-10-20] MEDS ORDERED: LEVEMIR100 UNIT/2 SC (11:11)
[2017-10-20] MEDS ORDERED: NOVOLOG 10100 UNITS/ SC (11:11)
[2017-10-20 11:40] VITALS: BP 118/67
== END 2017-10-20 12:50 | disposition home or self-care (01) | DRG 638 ==
LOC: EME 15:41 → EDOF 19:23 → 4SOUTH 19:23 → ENRESERV 19:27 → 4SOUTH 20:38 → ENPENDDIS 10-20 → 4SOUTH 10-20 12:50
PROVIDERS: Emergency Medicine; Hospitalist; Physician Assistant Medical
DX: E11.65 Type 2 diabetes mellitus with hyperglycemia (principal); T38.0X5A Adverse effect of glucocorticoids and synthetic analogues, initial encounter; N39.0 Urinary tract infection, site not specified; E86.0 Dehydration; B37.0 Candidal stomatitis; E87.6 Hypokalemia; R07.89 Other chest pain; N64.4 Mastodynia; I12.9 Hypertensive chronic kidney disease with stage 1 through stage 4 chronic kidney disease, or unspecified chronic kidney disease; E11.22 Type 2 diabetes mellitus with diabetic chronic kidney disease; N18.3 Chronic kidney disease, stage 3 (moderate); E03.9 Hypothyroidism, unspecified; E78.5 Hyperlipidemia, unspecified; F25.0 Schizoaffective disorder, bipolar type; G47.33 Obstructive sleep apnea (adult) (pediatric); J44.9 Chronic obstructive pulmonary disease, unspecified; F41.9 Anxiety disorder, unspecified; F43.10 Post-traumatic stress disorder, unspecified; G89.29 Other chronic pain; M54.5 Low back pain; M79.7 Fibromyalgia; F17.200 Nicotine dependence, unspecified, uncomplicated; E66.01 Morbid (severe) obesity due to excess calories; I44.0 Atrioventricular block, first degree; Z79.82 Long term (current) use of aspirin; Z79.4 Long term (current) use of insulin; Z68.39 Body mass index [BMI] 39.0-39.9, adult; Z79.891 Long term (current) use of opiate analgesic; Z88.1 Allergy status to other antibiotic agents; Z88.0 Allergy status to penicillin
CPT/HCPCS: 80048; 80053; 81003; 82803; 82948; 83605; 83690; 83735; 83930; 84100; 84484; 85027; 87040; 87077; 87086; 87186; 93005; 99281; 99284; G0378; J0696; J1650; J1815; J2765; J3480; J7030

== ENCOUNTER 2017-11-22 18:57 | Emergency (ER) | payer OTHER ==
[~2017-11-22] VITALS: Ht 162.6 cm; Wt 70.0 kg
[~2017-11-22 18:57] MED LIST changes: +LEVEMIR100 UNIT/2 SC; +NOVOLOG 10100 UNITS/ SC; +NYSTATIN100000 UN1 PO; +PROMETHAZINE HC25 M1 PO; +TOUJEO SOL300 UNIT/1 SC
[2017-11-22 20:15] LABS: BASOPHIL (%) 0.4 % (0-1); EOSINOPHIL (%) 0 % (0-5); HEMATOCRIT 42.9 % (36.0-46.0); HEMOGLOBIN 15.2 G/DL (11.9-15.5); IMMATURE GRANULOCYTE (%) 0.4 % (0.0-0.7); LYMPHOCYTE COUNT 1.2 K/uL (1.0-2.8); MCH 29.6 PG (29.0-34.0); MCHC 35.4 G/DL (30.0-36.0); MCV 83.6 FL (83-99); MONOCYTE COUNT 0.3 K/uL (0-0.8); NEUTROPHIL (%) 73.2 % (45-76); NEUTROPHIL COUNT 4.1 K/uL (1.8-6.4); PLATELET COUNT 213 K/uL (156-360); RBC DIS.WIDTH-CV 13.4 % (11.8-14.6); RBC DIS.WIDTH-SD 40.5 % (39-53); RED BLOOD COUNT 5.13 M/uL (3.80-5.20); WHITE BLOOD COUNT 5.6 K/uL (4.1-10.2)
[2017-11-22 20:22] LABS: CARBON DIOXIDE (BICARBONATE) 29.1 MEQ/L (20-31)
[2017-11-22 20:23] LABS: ALBUMIN 3.9 g/dL (3.2-4.8); CHLORIDE 100 mEq/L (99-109); SODIUM 139 mEq/L (136-147)
[2017-11-22 20:26] LABS: GLUCOSE 231 mg/dL (70-99); TOTAL PROTEIN 6.8 g/dL (6.4-8.3)
[2017-11-22 20:27] LABS: TOTAL BILIRUBIN 0.7 mg/dL (0.0-1.0)
[2017-11-22 20:29] LABS: ALKALINE PHOSPHATASE 123 IU/L (3-129); CREATININE 0.9 mg/dL (0.6-1.3); GFR ESTIMATE (CALCULATED) > 59 mL/min/; SERUM ETHYL ALCOHOL < 10 mg/dL
[2017-11-22 20:30] LABS: UREA NITROGEN (BUN) 7 mg/dL (9-23)
[2017-11-22 20:31] LABS: AST (GOT) 15 IU/L (2-34)
[2017-11-22 20:32] LABS: ALT (GPT) 19 IU/L (3-49)
[2017-11-22 20:33] LABS: LIPASE 8 U/L (1.0-51.0)
[2017-11-22 22:27] VITALS: BP 156/92
== END 2017-11-22 22:32 | disposition home or self-care (01) ==
LOC: EME 18:57
PROVIDERS: Emergency Medicine
DX: F41.9 Anxiety disorder, unspecified (principal); R11.0 Nausea; I10 Essential (primary) hypertension; K21.9 Gastro-esophageal reflux disease without esophagitis; F32.9 Major depressive disorder, single episode, unspecified; F31.9 Bipolar disorder, unspecified; F17.200 Nicotine dependence, unspecified, uncomplicated; Z79.82 Long term (current) use of aspirin; Z86.73 Personal history of transient ischemic attack (TIA), and cerebral infarction without residual deficits; Z98.890 Other specified postprocedural states; Z88.1 Allergy status to other antibiotic agents; Z88.0 Allergy status to penicillin; Z91.048 Other nonmedicinal substance allergy status; Z88.8 Allergy status to other drugs, medicaments and biological substances
CPT/HCPCS: 80053; 81003; 82010; 82803; 83690; 85025; 90839; 99281; 99284; G0480

== ENCOUNTER 2017-12-20 09:41 | Emergency (ER) | payer OTHER ==
[~2017-12-20] VITALS: Ht 162.6 cm; Wt 99.1 kg
[2017-12-20 13:30] VITALS: BP 94/62
[2017-12-20] MEDS ORDERED: SILVADENE20 GM TP (14:21)
[2017-12-20] MEDS ORDERED: MOTRIN800 MG PO (14:40)
== END 2017-12-20 14:29 | disposition home or self-care (01) ==
LOC: EME 09:41
DX: T22.211A Burn of second degree of right forearm, initial encounter (principal); S82.892A Other fracture of left lower leg, initial encounter for closed fracture; W19.XXXA Unspecified fall, initial encounter; X50.9XXA Other and unspecified overexertion or strenuous movements or postures, initial encounter; K21.9 Gastro-esophageal reflux disease without esophagitis; E11.9 Type 2 diabetes mellitus without complications; I10 Essential (primary) hypertension; F31.9 Bipolar disorder, unspecified; F32.9 Major depressive disorder, single episode, unspecified; F41.9 Anxiety disorder, unspecified; F17.200 Nicotine dependence, unspecified, uncomplicated; Z86.73 Personal history of transient ischemic attack (TIA), and cerebral infarction without residual deficits; Z79.82 Long term (current) use of aspirin; Z79.4 Long term (current) use of insulin; Z88.0 Allergy status to penicillin; Z88.1 Allergy status to other antibiotic agents; Z88.8 Allergy status to other drugs, medicaments and biological substances
CPT/HCPCS: 73090; 73552; 73610; 99281; 99284